=== PATIENT | female | born 1945 | race Caucasian/White ===

== ENCOUNTER 2016-08-11 15:39 | Emergency (ER) | payer OTHER, MEDICARE ==
[~2016-08-11] VITALS: Ht 167.6 cm; Wt 98.9 kg
[~2016-08-11 15:39] MED LIST: ASPIR 8181 M1 PO; AUGMENTIN 875875 MG PO; CELEXA20 MG PO; CLARITIN10 MG PO; MULTIVITAMIN PO; PEPCID20 MG PO; PREDNISONE 20 M20 M1 PO; ZYRTEC10 MG PO
[2016-08-11 16:05] LABS: URINE BILIRUBIN NEGATIVE (Negative); URINE BLOOD 1+ (Negative); URINE COLOR YELLOW; URINE GLUCOSE-RANDOM* NEGATIVE (Negative); URINE KETONES NEGATIVE (Negative); URINE LEUKOCYTES-REFLEX NEGATIVE (Negative); URINE PROTEIN (DIPSTICK) NEGATIVE (Negative); URINE UROBILINOGEN 0.2 E.U./dl (0.2-1.0)
[2016-08-11 16:21] LABS: CASTS None Seen /LPF (None Seen); SQUAMOUS 4-10 Moderate /LPF (0-3); URINE WBC-REFLEX 0-5 Rare /HPF (0-5)
[2016-08-11 16:22] LABS: CRYSTALS None Seen /LPF (None Seen); URINE RBC 0-2 Rare /HPF (0-2)
[2016-08-11 16:24] LABS: ABSOLUTE NEUTROPHILS 3.4 thou/uL (1.4-8.2); BASOPHILS 1.1 % (0.0-2.0); EOSINOPHILS 1.4 % (0.0-3.0); HEMATOCRIT 45.6 % (37.0-47.0); HEMOGLOBIN 15.3 gm/dL (12.0-15.0); MCH 29.8 pg (26.0-34.0); MCHC 33.6 % (28.0-37.0); MCV 88.7 fL (80.0-100.0); MONOCYTES 9.8 % (1.0-8.0); PLATELET COUNT 305 thou/uL (150-400); POLYS 52.7 % (36.0-66.0); RBC 5.14 mil/uL (4.20-5.00); RDW 13.7 % (10.5-14.5); WBC 6.5 thou/uL (4.0-11.0)
[2016-08-11 16:26] LABS: MANUAL DIFF NO
[2016-08-11 16:29] LABS: CALCIUM 9.2 mg/dL (8.5-10.1); CREATININE 0.8 mg/dL (0.6-1.3); POTASSIUM 3.9 mmol/L (3.5-5.1)
[2016-08-11] MEDS ORDERED: [UNRECOGNIZED DRUG - REMARK] PO (17:18)
[2016-08-11] MEDS ORDERED: ZOFRAN ODT4 MG PO (17:38)
[2016-08-11] MEDS ORDERED: NORCO 5-325 TA1 EACH PO (17:38)
[2016-08-11 17:47] VITALS: BP 155/83
== END 2016-08-11 17:56 | disposition home or self-care (01) ==
LOC: ER 15:39
PROVIDERS: Emergency Medicine
DX: N20.1 Calculus of ureter (principal); Z87.442 Personal history of urinary calculi; Z90.710 Acquired absence of both cervix and uterus; Z96.653 Presence of artificial knee joint, bilateral